=== PATIENT | male | born 1985 | race African-American/Black ===

== ENCOUNTER 2019-01-29 13:00 | Day surgery (SDC) | payer OTHER ==
[~2019-01-29] VITALS: Ht 175.3 cm; Wt 102.5 kg
--- NOTE | 2019-01-29 13:30 | PREAC ---
Date/Time of Note Date/Time of Note DATE: 01/29/19 TIME: 13:30 Anesthesia Eval and Record Evaluation Time Pre-Procedure Interview DATE: 01/29/19 TIME: 13:30 Age 33 Sex male NPO: 8 hrs Preoperative diagnosis heartburn Planned procedure EGD Past Medical History Past Medical History: None Surgery & Anesthesia Issues No known issue Meds Anticoagulation: No Beta Wendy within 24 hr: No Reason Beta Wendy not given: Pt. not on B-Wendy Meds reviewed: Yes Allergies Allergies Reviewed: Yes Labs/Studies Labs Reviewed: Reviewed by anesthesiologist test: N/A Studies: ECG (n/a), CXR (n/a) Pre-procedure Exam Airway: Adequate mouth opening Mallampati: Mallampati I Teeth: Normal Lung: Normal Heart: Normal ASA Physical Status ASA physical status: 1 Emergency: None Planned Anesthetic General/MAC: MAC Pre-operative Attestations Prior to commencing anesthesia and surgery, the patient was re-evaluated, there was verification of: *The patient's identity *The results of appropriate recent lab work and preoperative vital signs *The above evaluation not changing prior to induction *Anesthetic plan, risk benefits, alternative and complications discussed with patient/family; questions answered; patient/family understands, accepts and wishes to proceed. KOLBY REYES MD January 29, 2019 13:30
[2019-01-29] MEDS ORDERED: FENTAnyl 50 MCG/ML VIAL ONE (13:31)
[2019-01-29] MEDS ORDERED: PROPOFOL 20 ML ONE (13:31)
--- NOTE | 2019-01-29 13:32 | HPN ---
Date/Time of Note Date/Time of Note DATE: 01/29/19 TIME: 13:32 Interval H&P Admission Note Pt. seen H&P reviewed: No system changes OLGA MAX January 29, 2019 13:32
[2019-01-29 13:39] VITALS: Ht 175.3 cm; Wt 102.5 kg
[2019-01-29 13:41] VITALS: BP 118/80; PULSE 68; RESP 16
[2019-01-29 14:16] VITALS: BP 115/80; PULSE 68; RESP 18
--- NOTE | 2019-01-29 23:29 | PAC ---
Date/Time of Note Date/Time of Note DATE: 01/29/19 TIME: 23:29 Post-Anesthesia Notes Post-Anesthesia Note Last documented vital signs Vital Signs Date Temp Pulse Resp B/P (MAP) Pulse Ox O2 O2 Flow FiO2 Time Delivery Rate 01/29/19 97.4 68 18 115/80 94 Room Air 14:16 (92) 01/29/19 97.6 13:41 Activity: WNL Respiratory function: WNL Cardiovascular function: WNL Mental status: Baseline Pain reasonably controlled: Yes Hydration appropriate: Yes Nausea/Vomiting absent: No KOLBY REYES MD January 29, 2019 23:29
== END 2019-01-29 15:13 | disposition home or self-care (01) ==
LOC: GIL 13:00
PROVIDERS: ATTEND Internal Medicine Gastroenterology
DX: K20.9 Esophagitis, unspecified (principal)
CPT/HCPCS: 43239; 88305; 88312; 88313; J3010; Z7610